=== PATIENT | male | born 1995 | race Caucasian/White ===

== ENCOUNTER 2018-11-14 07:56 | Emergency (ER) | payer SELFPAY ==
[~2018-11-14] VITALS: Ht 175.3 cm; Wt 105.7 kg
[2018-11-14 09:04] VITALS: BP 121/75
== END 2018-11-14 09:15 | disposition home or self-care (01) ==
LOC: ER 07:56
DX: S70.11XA Contusion of right thigh, initial encounter (principal); V53.5XXA Driver of pick-up truck or van injured in collision with car, pick-up truck or van in traffic accident, initial encounter; Y92.411 Interstate highway as the place of occurrence of the external cause; J45.909 Unspecified asthma, uncomplicated
CPT/HCPCS: 99282